=== PATIENT | male | born 1980 | race Caucasian/White ===

== ENCOUNTER 2020-05-02 22:21 | Emergency (ER) | payer SELFPAY ==
[2020-05-02] MEDS ORDERED: HYDROcodone 5MG/APAP 325MG 1 EA TAB PO ONE (22:31)
--- NOTE | 2020-05-02 22:43 | ED.PDOC ---
History of Present Illness - General Chief Complaint: Lower Extremity Injury Stated Complaint: swollen right ankle Time Seen by Provider: 05/02/20 22:21 Source: patient, RN notes reviewed, Vital Signs reviewed Exam Limitations: no limitations - History of Present Illness Initial Comments: 40 yo male was doing a backflip on trampoline when he rolled his ankle. Complains of right ankle pain, unable to ambulate. did not hit head, no other injuries. no prior injuries. Occurred: just prior to arrival Allergies/Adverse Reactions: Allergies NO KNOWN ALLERGY Allergy (Verified 05/02/20 22:33) Review of Systems - Review of Systems Constitutional: Denies: chills, fever EENTM: Denies: throat swelling Respiratory: Denies: cough, short of breath Cardiology: Denies: chest pain Gastrointestinal/Abdominal: Denies: abdominal pain Musculoskeletal: States: joint pain, joint swelling, muscle pain. Denies: back pain Neurological: Denies: numbness, paresthesia Endocrine: Denies: unexplained weight loss Hematologic/Lymphatic: Denies: easy bleeding, easy bruising Past Medical History (General) - Patient Medical History Hx Seizures: No Hx Stroke: No Hx Dementia: No Hx of COPD: No Hx Cardiac Disorders: No Hx Congestive Heart Failure: No Hx Pacemaker: No Hx Hypertension: No Hx Thyroid Disease: No Hx Gastroesophageal Reflux: No Hx Renal Disease: No Family Medical History - Family History Paternal Family History: No Known Father Family History: Unknown Physical Exam - Physical Exam General Appearance: Alert, Comfortable, No apparent distress, Well Developed, Well Groomed, Well Hydrated, Well Nourished Eyes, Ears, Nose, Throat: normal ENT inspection Neck: non-tender, full range of motion, supple, normal inspection Cardiovascular/Respiratory: regular rate, rhythm, no M/R/G, normal peripheral pulses, normal breath sounds, no respiratory distress Gastrointestinal/Abdominal: non-tender Back: normal inspection, no CVA tenderness, no vertebral tenderness Thigh/Hip: normal inspection, non-tender, no evidence of injury Leg: normal inspection, non-tender, no evidence of injury, normal ROM Ankle: bone tenderness, deformity, ecchymosis, limited ROM, soft tissue tenderness, swelling Foot: normal inspection, other - doralis pedis and posterior tib 2+ afia symmetric. Neuro/Tendon: normal sensation, normal motor functions, normal tendon functions, responds to pain Mental Status: alert, oriented x 3 Skin: warm/dry Progress - Progress Progress: 05/02/20 23:30 ankle xRAy: Disruption of the right distal tibiofibular syndesmosis and ankle mortise as described. Likely cortical avulsion fracture from the lateral margin of the distal tibial metaphysis. Intra-articular lateral malleolar fracture. No dislocation. - Results/Orders Results/Orders: POSTERIOR SHORT LEG SPLINT PLACED, PULSES INTACT AFIA SYM. [facility] for evaluation by orthopedicThe data reviewed when caring for this patient included: nurse notes, prior records, etc. The history and assessments from nurses notes were reviewed and considered, and the patient's home medication list was also reviewed and considered. My assessment and the results of testing completed here in the ED were discussed with the patient/family. All questions were answered, and they express understanding of my assessment and the plan. patient left AMA. Stephanie Schultz DO #[id number] surgeon for probable surgery patient refused. Departure - Departure Clinical Impression: Trimalleolar fracture of ankle, closed Qualifiers: Encounter type: initial encounter Laterality: right Qualified Code(s): S82.851A - Displaced trimalleolar fracture of right lower leg, initial encounter for closed fracture Time of Disposition: 23:28 Disposition: Left Against Medical Advice Condition: Fair Departure Forms: ED Discharge - Pt. Copy, Patient Portal Self Enrollment Instructions: DI for Leg Pain, Ankle Fracture (DC), Splint Care Diet: resume usual diet Activity: other - no weight bearing on right leg Referrals: Cristino Wilkinson MD [Active Staff] - 1-2 Days Leonard Duran MD [Primary Care Provider] - 1-5 Days Transfer to Outside Facility - Transfer Information Decision to Transfer Date: 05/02/20 Decision to Transfer Time: 22:45 Reason for Transfer: required specialist not available
[2020-05-02 22:51] VITALS: O2SAT 97
[2020-05-02] MEDS ORDERED: HYDROCOD/APAP 7.5/325 (ER DISP) #3 TAB PO ONE (23:27)
[2020-05-02 23:42] VITALS: BP 112/62; TEMP 97.4
--- NOTE | 2020-05-02 23:47 | RAD ---
EXAM DESCRIPTION: XR Ankle, Right 3 Views CLINICAL HISTORY: 40 years Male Fall TECHNIQUE: Three views of the right ankle are provided. COMPARISON: No prior exams provided for comparison. FINDINGS: There is pronounced soft tissue swelling about the right ankle with a large joint effusion. There has been disruption of the ankle mortise with widening of the distal tibiofibular syndesmosis, anterior tibiotalar joint, and medial clear space. There is an intra-articular fracture of the lateral malleolus. Suspected cortical avulsion fracture from the lateral margin of the distal tibial metaphysis. No other fracture. Other visualized joint spaces are preserved. No aggressive osseous lesion or soft tissue gas. IMPRESSION: Disruption of the right distal tibiofibular syndesmosis and ankle mortise as described. Likely cortical avulsion fracture from the lateral margin of the distal tibial metaphysis. Intra-articular lateral malleolar fracture. No dislocation. Electronically signed by: Fifi Willis MD 05/02/2020 10:56 PM [facility]
== END 2020-05-02 23:42 | disposition left against medical advice (07) ==
LOC: ER 22:21
DX: S82.61XA Displaced fracture of lateral malleolus of right fibula, initial encounter for closed fracture (principal); S82.301A Unspecified fracture of lower end of right tibia, initial encounter for closed fracture; Z53.29 Procedure and treatment not carried out because of patient's decision for other reasons; X50.9XXA Other and unspecified overexertion or strenuous movements or postures, initial encounter; Y93.44 Activity, trampolining; Y92.9 Unspecified place or not applicable